=== PATIENT | male | born 1970 | race Caucasian/White ===

== ENCOUNTER 2020-08-16 12:39 | Observation (INO) | payer OTHER ==
[~2020-08-16 12:39] MED LIST: Iopamidol-370 76% 500 ML 1 ML ONE
[2020-08-16 13:33] LABS: Hemoglobin 8.7 g/dL (14.0-18.0); Mean Corpuscular HGB CONC 34.7 g/dL (32.0-36.0); Mean Corpuscular Hemoglobin 35.1 pg (27.0-31.0); RBC Distribution Width 23.8 % (11.5-14.5); Red Blood Cell (RBC) Count 2.49 mill/uL (4.70-6.10); White Blood Cell (WBC) Count 7.3 thou/uL (4.8-10.8)
[2020-08-16 13:53] LABS: Anisocytosis SLIGHT = 6-15 cells (100X) (0-5/hpf); Band 27 % (5-11); Hypochromia SLIGHT = 6-15 cells (100X) (0-5/hpf); Lymphocytes 15 % (21-51); MDiff Complete? YES; Macrocytosis SLIGHT = 6-15 cells (100X) (0-5/hpf); Mean Platelet Volume 6.8 fL (7.4-10.4); Monocytes 18 % (0-10); Neutrophil 17 % (42-75); Platelet Count 41 thou/uL (130-400); Platelet Morphology Comment Appears Decreased; Polychromasia MODERATE = 3-4 cells (100X) (0-2/hpf); Reactive Lymphocytes 23 % (0-10); Schistocytes SLIGHT = 2-5 cells (100X) (0-1/hpf); Target Cells SLIGHT = 2-5 cells (100X) (0-1/hpf); Tear Drops SLIGHT = 2-5 cells (100X) (0-1/hpf)
[2020-08-16 14:02] LABS: ALT (SGPT) 14 U/L (8-55); AST (SGOT) 17 U/L (5-34); Albumin 3.7 g/dL (3.5-5.0); Alkaline Phosphatase 68 U/L (40-110); Anion Gap 13 mmol/L (10-20); BUN (Urea Nitrogen) 14 mg/dL (8.4-25.7); Bilirubin, Total 1.8 mg/dL (0.2-1.2); CK (CPK) 39 U/L (30-200); Calc. Creatinine Clearance 0 mL/min (70-130); Calcium 8.8 mg/dL (7.8-10.44); Carbon Dioxide 30 mmol/L (22-29); Chloride 96 mmol/L (98-107); Estimated GFR-MDRD 64; Globulin 3.3 g/dL (2.4-3.5); Glucose 136 mg/dL (70-105); Lipase 16 U/L (8-78); Potassium 3.9 mmol/L (3.5-5.1); Sodium 135 mmol/L (136-145)
--- NOTE | 2020-08-16 14:28 | RAD ---
XR Chest 1 View Portable History: Chest pain Comparison: None. Findings: Subtle nodule projects over the right upper lobe. Mild fullness of the right peritracheal s oft tissues. No acute osseous abnormality. No pneumothorax or effusion. Mild bronchial wall thickening both lower lobes as well as lingula. Impression: 1. Subtle nodule right upper lobe measuring up to 7 mm along with mild right paratracheal fullness sh ould be interrogated with a chest CT exam. 2. Mildly thickened bronchial delgado in both lower lobes can be seen with bronchitis.
--- NOTE | 2020-08-16 20:52 | CT ---
CT ANGIOGRAM CHEST WITH CONTRAST: History: Substernal chest pain Comparison: Chest radiograph, 08-16-2020 FINDINGS: CT angiogram chest performed after the intravenous administration of contrast. 3D rendering provided. No proximal or segmental pulmonary arterial defect. No significant pericardial effusion. There is extension of the azygos vein. Relatively minimal increase in subcarinal lymph node size to the comparison examination measuring 14 mm in short axis, previously 12 mm in 2014. A pretracheal lymph node (Axial image 44) is enlarged rel ative to the prior examination with a short axis measurement of 1 cm. Right peritracheal lymph node ( Axial image 36) is also enlarged from the comparison examination measuring 13 mm in short axis, previ ously 4 mm. Lower paraesopahgeal lymph node not well seen on prior examination (Coronal image 77) now measures 12 mm in short axis. The spleen is enlarged measuring over 15 cm in length. Mosaic attenuation of the lungs chronic small airway disease. Mild bronchial wall thickening, both lo wer lobes. Small bilateral pleural effusions. Sternum and manubrium are intact. Thoracic spine is int act. No suspicious osteolytic or osteoblastic lesions. IMPRESSION: 1. Small bilateral pleural effusions and findings of bronchitis. 2. No pulmonary embolism. 3. Enlarged since 2014 mediastinal lymph nodes as described. PET CT recommended to evaluate for underlying metabolic activity as there is concern for underlying lymphoprolific disorder or metastati c disease from patient's known cancer. 4. Splenomegaly with a craniocaudal length of the spleen measuring 15 cm. This is new from the [address] exam. 5. Peripheral opacity in the anterior aspect right upper lobe measuring up to 7 mm, likely corre sponds to recent radiographic finding and may reflect an area of alveolitis and less likely a pulmona ry nodule. This could be evaluated on the follow up PET CT. POS: HOME
[2020-08-16 20:53] LABS: Troponin I Less than 0.010 ng/mL (< 0.028)
--- NOTE | 2020-08-16 21:25 | HP ---
REASON FOR ADMISSION: Chest pain. HISTORY OF PRESENT ILLNESS: This is a 50-year-old male patient, who is presenting with chest pain. History going back to five days before his presentation. He has been experiencing chest pain described as tightness like in nature. Sometimes he feels his heart racing. The chest pain is worse with activity, it off and on when it occurs. The duration of the episode is 1 hour. Recently, he has been always short of breath. When he works outside, he gets very short of breath, he has to sit down, feels fatigued. His noticed some pulsation in his chest and abdomen in the morning, sometimes he has been feeling palpitations. The patient is in the ER, was found to be anemic. He does follow with . He has history of testicular cancer. He underwent chemotherapy a couple years ago. He denies any black stools. Denies any hematemesis. Testicular cancer status post orchiectomy and chemotherapy. SOCIAL HISTORY: He drinks occasionally. ALLERGIES: HE DOES NOT HAVE ANY DRUG ALLERGIES. REVIEW OF SYSTEMS: All systems reviewed except the above mentioned, found to be negative. PHYSICAL EXAMINATION: GENERAL: He is awake, alert, oriented, does not appear in distress. VITAL SIGNS: His blood pressure is 129/74, pulse of 94, saturating 99% on room air. HEENT: Head is nontraumatic, normocephalic. Pupils equal, reactive. Extraocular movements are intact. Nonicteric sclerae. Well injected conjunctivae. Oral mucosa normal. Nasal mucosa normal. NECK: Supple. No adenopathy. No murmur. Thyroid is not palpable. Trachea is midline. No supraclavicular adenopathy. HEART: S1, S2 regular. No murmur. No gallop. No friction rubs. No displacement of PMI. LUNGS: Clear to auscultation bilaterally. No wheezes, rhonchi, no crackles. ABDOMEN: Bowel sounds are positive. Nontender abdomen. No hepatosplenomegaly. EXTREMITIES: No lower extremity edema. No cyanosis. NEURO: Cranial nerves II through XII within normal limits. Normal motor function. Normal sensory function and reflexes. LABORATORY DATA: Blood work shows WBC of 7.3; hemoglobin 8.7, the last hemoglobin we have in 2017 was 17.9; MCV of 101.0; platelets of 41,000; neutrophil count 17%; bands of 27%. Sodium 135, potassium 3.9, bicarb of 30, creatinine 1.2, glucose 136. Troponin less than 0.01. EKG shows normal sinus rhythm, negative T-waves in III and aVF. ASSESSMENT AND PLAN: This is a 50-year-old male patient, presenting with chest tightness, but also longer occurrence of fatigue and shortness of breath. He was found to be anemic without obvious explanation. His CT of the chest is still pending, but I did hear the verbal dictation. There was a mention of enlarged spleen. Cardiac: The patient will be admitted to the telemetry. We will continue cycling his cardiac enzymes. We will provide normal blood pressure control. We will do an echocardiogram in the morning. I would like to hold off on scheduling for stress test. Would like Hematology to see him and to advise on the anemia since it could be a contributing factor to his symptomatology. For DVT prophylaxis, he will be on SCDs. Job ID: [id number]
[2020-08-16] MEDS ORDERED: Ondansetron PF 4 MG/2 ML Vial IVP PRN (22:45)
[2020-08-16] MEDS ORDERED: Aspirin Chewable 81 MG TAB PO SCH (22:45)
[2020-08-16] MEDS ORDERED: Ondansetron ODT 4 MG TAB SL PRN (22:45)
[2020-08-16] MEDS ORDERED: Acetaminophen 325 MG TAB PO PRN (22:45)
[2020-08-16 22:51] LABS: Troponin I Less than 0.010 ng/mL (< 0.028)
[2020-08-16 23:50] VITALS: BMI 30.1
[2020-08-17 05:01] LABS: Anion Gap 12 mmol/L (10-20); BUN (Urea Nitrogen) 14 mg/dL (8.4-25.7); Calc. Creatinine Clearance 128 mL/min (70-130); Calcium 8.6 mg/dL (7.8-10.44); Carbon Dioxide 31 mmol/L (22-29); Chloride 98 mmol/L (98-107); Estimated GFR-MDRD 82; Glucose 134 mg/dL (70-105); Potassium 3.5 mmol/L (3.5-5.1); Sodium 137 mmol/L (136-145)
[2020-08-17 05:37] LABS: Anisocytosis SLIGHT = 6-15 cells (100X) (0-5/hpf); Band 23 % (5-11); Hemoglobin 8.2 g/dL (14.0-18.0); Lymphocytes 17 % (21-51); MDiff Complete? YES; Macrocytosis SLIGHT = 6-15 cells (100X) (0-5/hpf); Mean Corpuscular HGB CONC 33.3 g/dL (32.0-36.0); Mean Corpuscular Hemoglobin 34.6 pg (27.0-31.0); Mean Platelet Volume 5.9 fL (7.4-10.4); Metamyelocyte 10 % (0-0); Monocytes 7 % (0-10); Myelocyte 15 % (0-0); Neutrophil 28 % (42-75); Platelet Count 36 thou/uL (130-400); Platelet Morphology Comment Appears Decreased; Red Blood Cell (RBC) Count 2.36 mill/uL (4.70-6.10); Schistocytes SLIGHT = 2-5 cells (100X) (0-1/hpf); Tear Drops SLIGHT = 2-5 cells (100X) (0-1/hpf); White Blood Cell (WBC) Count 5.4 thou/uL (4.8-10.8)
[2020-08-17] MEDS ORDERED: FLU VACC QS2020-21(6MOS UP)/PF 60 MCG/0.5 ML SYRINGE IM ONE (09:00)
[2020-08-17 09:08] LABS: Reticulocyte Count 1.4 % (0.5-1.5)
[2020-08-17 09:28] LABS: Iron 62 ug/dL (65-175); Iron Binding Capacity, Total 259 mcg/dL (261-462)
[2020-08-17 09:52] LABS: Ferritin 720.36 ng/mL (22-322)
[2020-08-17] MEDS ORDERED: HYDROcodone/Acetaminophen 5/325 mg Tablet PO PRN (13:35)
[2020-08-17] MEDS ORDERED: Ondansetron PF 4 MG/2 ML Vial IVP PRN (13:35)
[2020-08-17] MEDS ORDERED: Acetaminophen 325 MG TAB PO PRN (13:35)
[2020-08-17] MEDS ORDERED: Hydrochlorothiazide 25 MG TAB PO SCH (14:00)
[2020-08-17] MEDS ORDERED: Atenolol 50 MG TAB PO SCH (14:00)
[2020-08-17 14:28] LABS: SARS-CoV-2 MS2 Positive; SARS-CoV-2 N Gene Negative; SARS-CoV-2 S Gene Negative; SARS-CoV-2 by NAA Not Detected (NotDetected); SARS-CoV-2 orf1ab Negative
--- NOTE | 2020-08-17 15:37 | PDOC.HOSPP ---
- Subjective Subjective: Pt was seen and examined. further workup of his symptomatic anemia, mild iron def. stool quiaic positive. denies significant of NSAIDs use. no reports of melena, or hematochezia - Objective Vital Signs & Weight: Vital Signs (12 hours) Temp Pulse Resp BP BP Pulse Ox 08/17/20 15:09 97 124/74 08/17/20 12:25 99.0 F 97 16 121/65 99 08/17/20 07:44 99.1 F 88 18 116/76 98 08/17/20 03:47 99.6 F 97 18 127/62 96 Weight Weight 222 lb I&O: 08/16/20 08/17/20 08/18/20 06:59 06:59 06:59 Intake Total 300 Balance 300 Result Diagrams: 08/17/20 03:59 08/17/20 03:59 Radiology Reviewed by me: Yes EKG Reviewed by me: Yes Hospitalist ROS - Medication Medications: Active Medications Generic Name Dose Route Start Last Admin Trade Name Freq PRN Reason Stop Dose Admin Acetaminophen 650 mg 08/17/20 13:35 08/17/20 15:13 Acetaminophen 325 Mg Tab PO 650 mg Q6H PRN Administration Mild-Moderate Pain (1-5) Atenolol 50 mg 08/17/20 14:00 08/17/20 15:09 Atenolol 50 Mg Tab PO 08/17/20 16:00 50 mg NOW DARLENE Administration Hydrochlorothiazide 12.5 mg 08/17/20 14:00 08/17/20 15:10 Hydrochlorothiazide 25 Mg Tab PO 08/17/20 16:00 12.5 mg NOW DARLENE Administration - Exam General Appearance: NAD Eye: PERRL ENT: normocephalic atraumatic Neck: supple Heart: RRR Respiratory: CTAB Gastrointestinal: soft, non-tender Extremities: no cyanosis Skin: normal turgor Neurological: cranial nerve grossly intact Musculoskeletal: normal tone, normal strength Psychiatric: normal affect, normal behavior, A&O x 3 Hosp A/P - Plan The patient stated 50 years old gentleman who has significant past medical history of testicular cancer with status post radiation/chemotherapy in 2013, who presented to ED with complaint of chest discomfort and dyspnea, progressive weight loss. Symptomatic anemia --stool guiaic positive, denies any hx of NSAID use --start PPI BID --GI eval Thrombocytopenia --unclear etiology, pending oncology input --reports his chemo/rad in 2013 Hx testicular cancer --CTA showed neg PE, enlarged mediastinal lymp node --Followed by Dr. Yip, he has been consulted. Chest discomfort - d/t symptomatic anemia --serial enzyme neg x 3; Echo wnl
[2020-08-17] MEDS ORDERED: Folic Acid 1 MG TAB PO SCH (17:00)
--- NOTE | 2020-08-17 21:49 | CON ---
DATE OF CONSULTATION: REASON FOR CONSULT: Testicular cancer, thrombocytopenia, and anemia. HISTORY OF PRESENT ILLNESS: Mr. Leary is a 50-year-old gentleman, who has had history of stage IIIA classic seminoma, status post left orchiectomy and four cycles of BEP chemotherapy. He has had no evidence of disease since that time and is followed by Dr. Dos Santos, last seen in February. He does take hormone replacement with testosterone and in the past has had erythrocytosis from this. He has also had mild thrombocytopenia. He was referred to GI in February, but unfortunately did not go to the appointment. Over the last few months, he states he has lost 10 pounds monthly, but he feels it is due to a job change, diet change, and increase in physical exercise. Over the last two weeks, particularly in the last week, he has had shortness of breath, numbness, and tingling in his arms and fatigue. He presented to the emergency room for evaluation. He had a hemoglobin of 8.7 and a platelet count of 41,000. He had 17% neutrophils, 27% bands, 15% lymphocytes, 23% reactive lymphocytes, and 18% monocytes. His retic count was 1.4. He had iron studies that were normal. His folic acid, however, was low at 3.5. He had a stool occult that was positive for blood. He denies any melena, hematochezia, or epistaxis. He does have heartburn and has been on Zantac for multiple years. Again, he has never had a colonoscopy. His CT angio showed an enlarged spleen measuring 15 cm. There were small bilateral pleural effusions consistent with bronchitis. He had essentially stable mediastinal lymph nodes since 2013. PAST MEDICAL HISTORY: 1. Stage IIIA classic seminoma testicular cancer, status post left orchiectomy. 2. Hypertension. 3. hypogonadism, on testosterone replacement. PAST SURGICAL HISTORY: 1. Mastectomy. 2. Appendectomy. 3. Shoulder surgery. 4. Hand surgery. ALLERGIES: NO KNOWN DRUG ALLERGIES. HOME MEDICATIONS: 1. Aspirin 81 mg daily. 2. Atenolol 50 mg daily. 3. Cialis p.r.n. 4. Hydrochlorothiazide 12.5 mg daily. 5. Zantac daily. 6. Testosterone injection every 6 months. FAMILY HISTORY: No history of testicular cancer. SOCIAL HISTORY: , has 2 children. Lives with his spouse. Former smoker. Drinks daily. No illicit drug use. REVIEW OF SYSTEMS: 12-point review of systems is negative, except for noted in HPI. PHYSICAL EXAMINATION: VITAL SIGNS: Temperature is 99.0, pulse is 97, respiratory rate 16, BP is 124/74, and he is 99% on room air. GENERAL: A well-developed, well-nourished male, in no acute distress. HEENT: Normocephalic and atraumatic. Pupils are equal and reactive to light. NECK: Supple. CVS: Regular rate and rhythm. LUNGS: Clear. ABDOMEN: Obese. Nontender. There is no hepatosplenomegaly palpable. EXTREMITIES: No clubbing or cyanosis. SKIN: No rash. HEMATOLOGICAL: No petechiae or purpura. NEUROLOGICAL: Nonfocal. PERTINENT LABORATORY DATA AND X-RAYS: WBCs are 5.4, hemoglobin 8.2, hematocrit 24.6, platelet count is 36,000. He has 28% neutrophils, 23% bands, 17% lymphocytes, retic count is 1.4. Sodium 137, potassium 3.5, chloride 98, CO2 is 31, BUN is 14, creatinine 0.97, and calcium 8.6. Iron is 62, TIBC is 259, and ferritin is 736. Bilirubin is 1.8, AST is 17, ALT is 14, and alk phos is 68. Creatine kinase is 39 and troponin is negative. Serum total protein is 7, albumin 3.7, globulin 3.3, and lipase 16. B12 is 646. Folic acid is 3.5. COVID PCR negative. ASSESSMENT: 1. Macrocytic anemia. 2. Thrombocytopenia. 3. Folic acid deficiency. 4. Positive stool guaiac. DISCUSSION: Case will be discussed with Dr. Dos Santos. Clearly, the patient has a folic acid deficiency, which could be the cause of his numbness and tingling in his arms, palpitations, and anemia. He also has positive blood in his stools. GI has been consulted for further workup. Patient has a history of fairly significant alcohol use almost on a daily basis. His bilirubin is slightly elevated. He has splenomegaly. This might be due to portal hypertension, which is also causing thrombocytopenia. Again, we will wait for GI opinion. He does not require transfusion right now. He is due to see Dr. Dos Santos later this week where his routine labs for his testicular cancer can be performed. I have started folic acid on him and we will recheck his CBC in the morning. Thank you for the consult. Job ID: [id number] [facility]ITALMarisela
--- NOTE | 2020-08-17 22:33 | CON ---
DATE OF CONSULTATION: 08/17/2020 REQUESTING PHYSICIAN: Emilio Edmondson MD REASON FOR CONSULTATION: Symptomatic anemia and positive FOBT. HISTORY OF PRESENT ILLNESS: Angelo Leary Jr is a very pleasant 50-year-old man. He has a history significant for testicular cancer, status post orchiectomy and chemotherapy and radiation treatments back in 2013. He has some chronic GERD symptoms, for which he takes omeprazole, but no other chronic gastrointestinal symptomatology. He was admitted to the hospital yesterday after presenting with about five days of worsening dyspnea on exertion and chest tightness. There was no associated abdominal pain, nausea, vomiting, diarrhea, constipation, melena, hematochezia, or fever. He has lost about 50 pounds over the past six months, but attributes this to having recently lost his job and changing his eating habits. Upon presentation, he was found to have a macrocytic anemia. Hemoglobin is 8.2 with MCV elevated to 104 and folic acid is low at 3.5. Iron studies were mixed. He had CT angiogram of the chest and this demonstrates some changes suggestive of bronchitis, but no pulmonary embolus. There is also some mediastinal lymphadenopathy as well as splenomegaly. Notably, his platelets are also low at 36. He has never undergone EGD or colonoscopy. Again, he denies any melena or hematochezia, but FOBT was taken and was positive. Hematology/Oncology consultation was also requested and is still pending. REVIEW OF SYSTEMS: Full review of systems including constitutional, head, eyes, ears, nose, throat, GI, , cardiovascular, respiratory, musculoskeletal, and neurologic systems is negative except as noted in the HPI. PAST MEDICAL HISTORY: GERD; hypertension; testicular cancer status post orchiectomy, chemotherapy and radiation in 2013; appendectomy; vasectomy; shoulder surgery; and jaw surgery. SOCIAL HISTORY: Moderate alcohol use. No smoking. FAMILY HISTORY: Positive for myocardial infarction and CVA in multiple family members on the paternal side. There is no known family history of colon cancer. ALLERGIES: NO KNOWN DRUG ALLERGIES. OUTPATIENT MEDICATIONS: 1. Claritin-D. 2. Hydrochlorothiazide. 3. Atenolol. 4. Aspirin 81 mg daily. 5. Omeprazole 20 mg daily. 6. Cialis. 7. Testosterone. PHYSICAL EXAMINATION: VITAL SIGNS: Temperature 99, pulse is 97, blood pressure 124/74, and 99% oxygen saturation on room air. GENERAL: A 50-year-old man, lying in bed comfortably, in no distress. MENTAL: He is alert and fully oriented, in good spirits. Pleasant, conversational. Can give a detailed coherent history. SKIN: He is a bit pale. No jaundice. No rashes were palpable. EYES: No scleral icterus. Extraocular movements intact. ENT: Mucous membranes moist. No oral lesions. LYMPH: No submandibular or supraclavicular lymphadenopathy. THYROID: Nontender to palpation. HEART: Regular rate and rhythm. LUNGS: Clear to auscultation bilaterally. ABDOMEN: Nondistended. Bowel sounds present. Soft and nontender to palpation throughout. No organomegaly appreciated on physical exam. EXTREMITIES: No peripheral edema. VESSELS: Radial pulses 2+ bilaterally. NEUROLOGIC: Cranial nerves 2 through 12 intact bilaterally. No focal deficits. LABORATORY STUDIES: WBC 5.4, hemoglobin 8.2 with MCV 104, platelets low at 36. Sodium 137, potassium 3.5, BUN 14, creatinine 0.97. Total bilirubin 1.8, alkaline phosphatase 68, AST 17, ALT 14, albumin 3.7. COVID PCR negative. Troponin negative. LDH normal at 169. Vitamin B12 of 646. Folic acid level is low at 3.5, lipase only 16, ferritin elevated to 720, iron low at 62, TIBC 259. Overall pattern of iron studies is mixed. IMAGING STUDIES: Chest x-ray shows a 7 mm right upper lobe nodule. CTA of the chest showed bronchitis. No evidence of pulmonary embolus. There is mediastinal lymphadenopathy and splenomegaly. Echocardiogram; this demonstrated normal ejection fraction of 60% to 65% with normal LV size, essentially normal exam. ASSESSMENT AND PLAN: 1. Macrocytic anemia, severe, symptomatic. 2. Folic acid deficiency. 3. Thrombocytopenia. 4. Heme-positive stool. The patient has a folic acid deficiency, which may indeed at least partially explain the macrocytic anemia. The thrombocytopenia is less clear, but note, he has mediastinal lymphadenopathy and splenomegaly in the context of prior history of testicular cancer. 5. Weight loss. 6. Chronic gastroesophageal reflux disease. Iron studies are mixed. He has no overt evidence of gastrointestinal bleeding. That being said, the significant weight loss in the severity of anemia is concerning and GI occult bleeding lesion should be ruled out. The patient has been eating solid food today. While awaiting Oncology evaluation, we will have the patient on a clear liquid diet tomorrow. The tentative plan will be to administer bowel preparation tomorrow evening in anticipation of esophagogastroduodenoscopy and colonoscopy the following day. Depending on platelet count at that time, he may benefit from platelet transfusion prior to the procedure. Thank you for the consultation. Please call anytime with questions or concerns. Job ID: [id number]
[2020-08-18 05:56] LABS: Anisocytosis MODERATE=16-30 cells (100X) (0-5/hpf); Band 23 % (5-11); Eosinophils 1 % (0-10); Hemoglobin 8.7 g/dL (14.0-18.0); Lymphocytes 27 % (21-51); MDiff Complete? YES; Mean Corpuscular Hemoglobin 34.4 pg (27.0-31.0); Mean Platelet Volume 7.7 fL (7.4-10.4); Metamyelocyte 6 % (0-0); Monocytes 5 % (0-10); Myelocyte 9 % (0-0); Neutrophil 17 % (42-75); Platelet Count 39 thou/uL (130-400); Platelet Morphology Comment Appears Decreased; RBC Distribution Width 23.8 % (11.5-14.5); Reactive Lymphocytes 12 % (0-10); Red Blood Cell (RBC) Count 2.53 mill/uL (4.70-6.10); Schistocytes SLIGHT = 2-5 cells (100X) (0-1/hpf); White Blood Cell (WBC) Count 5.7 thou/uL (4.8-10.8)
[2020-08-18] MEDS ORDERED: Hydrochlorothiazide 25 MG TAB PO SCH (09:00)
[2020-08-18] MEDS ORDERED: Aspirin 81 mg Enteric Coated Tablet PO SCH (09:00)
[2020-08-18] MEDS: Folic Acid 1 MG TAB PO SCH (10:02)
[2020-08-18] MEDS: Atenolol 50 MG TAB PO SCH (10:02)
--- NOTE | 2020-08-18 17:26 | PDOC.HOSPP ---
- Subjective Subjective: no acute event overnight. Hb stable - Objective Vital Signs & Weight: Vital Signs (12 hours) Temp Pulse Resp BP Pulse Ox 08/18/20 16:40 97.4 F L 82 16 124/58 L 98 08/18/20 11:54 98 F 86 16 121/65 98 08/18/20 10:02 96 08/18/20 07:45 98.2 F 96 16 117/56 L 96 Weight Weight 218 lb 14.4 oz I&O: 08/17/20 08/18/20 08/19/20 06:59 06:59 06:59 Intake Total 300 720 Output Total 300 Balance 300 420 Result Diagrams: 08/18/20 04:44 08/17/20 03:59 Radiology Reviewed by me: Yes EKG Reviewed by me: Yes Hospitalist ROS - Medication Medications: Active Medications Generic Name Dose Route Start Last Admin Trade Name Freq PRN Reason Stop Dose Admin Acetaminophen 650 mg 08/17/20 13:35 08/17/20 15:13 Acetaminophen 325 Mg Tab PO 650 mg Q6H PRN Administration Mild-Moderate Pain (1-5) Atenolol 50 mg 08/18/20 09:00 08/18/20 10:02 Atenolol 50 Mg Tab PO 50 mg DAILY DARLENE Administration Folic Acid 1 mg 08/18/20 09:00 08/18/20 10:02 Folic Acid 1 Mg Tab PO 1 mg DAILY DARLENE Administration Pantoprazole Sodium 40 mg 08/17/20 21:00 08/18/20 10:02 Pantoprazole 40 Mg Tab PO 40 mg BID DARLENE Administration - Exam General Appearance: NAD Eye: PERRL ENT: normocephalic atraumatic Neck: supple Heart: RRR Respiratory: CTAB Gastrointestinal: soft Extremities: no cyanosis Skin: normal turgor Hosp A/P - Plan The patient stated 50 years old gentleman who has significant past medical history of testicular cancer with status post radiation/chemotherapy in 2013, who presented to ED with complaint of chest discomfort and dyspnea, progr essive weight loss. Symptomatic anemia with folic def --FOBT positive, denies any hx of NSAID use --cont PPI BID --GI eval appreciated - EGD/Colonoscopy tomorrow Thrombocytopenia --stable. follow CBC --appreciate oncology input Hx testicular cancer --CTA showed neg PE, enlarged mediastinal lymp node --Followed by Dr. Yip Chest discomfort - d/t symptomatic anemia --serial enzyme neg x 3; Echo wnl Folic def anemia --pt was started on supplement by oncology
[2020-08-18] MEDS ORDERED: GoLYTELY 4,000 ml Bottle PO SCH (17:30)
--- NOTE | 2020-08-18 18:56 | PRG ---
DATE OF SERVICE: 08/18/2020 SUBJECTIVE: Mr. Leary has had no overt GI bleeding. No nausea or vomiting or diarrhea or constipation. OBJECTIVE: VITAL SIGNS: Temperature 97.4, pulse 82, blood pressure 124/58. GENERAL: He is in no acute distress. Alert and oriented x3. HEENT: Eyes have no scleral icterus. Oropharynx is clear without lesions. No cervical or supraclavicular lymphadenopathy. LUNGS: Clear to auscultation bilaterally. HEART: Regular rate and rhythm without murmur. ABDOMEN: Soft, nontender, and nondistended. Bowel sounds are present. EXTREMITIES: No lower extremity edema. LABORATORY DATA: Iron 62, TIBC 259, ferritin 720, folate 3.5, B12 of 646. White blood cell count 5.7, hemoglobin 8.7, MCV 104, platelets 39,000. IMPRESSION: 1. Macrocytic anemia with folic acid deficiency. 2. Anemia of chronic disease with low iron, low TIBC, and high ferritin. 3. Question of contributing anemia from chronic gastrointestinal blood loss. He has never had a colonoscopy. 4. Abnormal liver function test. He has an isolated hyperbilirubinemia. However, the enlarged spleen with the low platelets could indicate portal hypertension. Upper endoscopy could help evaluate for significant signs of portal hypertension with either varices or portal hypertensive gastropathy. RECOMMENDATIONS: 1. We will follow through with the EGD and colonoscopy tomorrow. 2. He is being followed by Hematology-Oncology as well. Job ID: [id number]
--- NOTE | 2020-08-19 14:14 | OP ---
DATE OF PROCEDURE: 08/19/2020 PROCEDURES PERFORMED: Esophagogastroduodenoscopy with snare polypectomy, colonoscopy (diagnostic). INDICATION FOR PROCEDURE: Symptomatic anemia, suspect GI bleeding source. DESCRIPTION OF PROCEDURE: After the risks and benefits of the procedures were explained to the patient including risks of bleeding, infection, perforation, reactions to anesthesia, aspiration, and/or pain, informed consent was obtained. The patient was then taken to the endoscopy suite, where he was maneuvered into the left lateral decubitus position, followed by introduction of deep sedation via propofol and anesthesia support. Once adequate sedation was achieved, the standard gastroscope was introduced into the mouth with intubation of the esophagus, stomach, and the proximal small intestines with the findings listed below. The patient tolerated the procedure well with no immediate perioperative complications. On conclusion of this portion of the procedure, all equipment was removed from the patient and the bed was rotated 180 degrees in anticipation of the colonoscopy. After a digital rectal examination was performed, the standard colonoscope was introduced into the rectum and advanced to the terminal ileum without difficulty. The quality of the prep was good with adequate visualization achieved. The patient tolerated this portion of the procedure well with no immediate perioperative complications. On conclusion of the procedure, all equipment was removed from the patient and he was transferred to PACU in satisfactory condition. EGD FINDINGS: Esophagus: Normal-appearing mucosa was seen in the proximal, mid, and distal esophagus. There was no evidence of erosions, ulcerations, mass lesions, or active/recent bleeding. Stomach: Multiple erythematous polyps were seen throughout the entire stomach in primarily the fundus and the body measuring between 3 to 15 mm in size. They exhibited significantly increased erythema and one of the larger polyps also exhibited mild oozing of blood with manipulation by the scope. As such, the 2 largest polyps measuring 12 mm and 15 mm were removed completely with snare cautery polypectomy. They were placed in a specimen jar for further evaluation. The remainder of these erythematous polyps were not removed given the increased risk of bleeding with removal and not wanting to provide additional sources of anemia at this time. Otherwise, there was no evidence of erosions, mass lesions, or active/recent bleeding. Duodenum: Normal-appearing mucosa was seen in both the duodenal bulb and second portion of the duodenum. There was no evidence of erosions, ulcerations, mass lesions, or active/recent bleeding. IMPRESSION: 1. Multiple erythematous gastric polyps measuring 3 to 15 mm in diameter, status post snare cautery polypectomy of the largest 2 polyps (measuring 12 to 15 mm in size) with good hemostasis afterwards (likely not the source of the patient's macrocytic anemia). 2. Otherwise, normal upper endoscopy. COLONOSCOPY FINDINGS: Digital rectal exam: Normal findings were seen on external examination. Colon findings: Normal-appearing mucosa was seen within the terminal ileum as well as at the appendiceal orifice and ileocecal valve. Normal-appearing mucosa was then seen within the cecum, ascending colon, transverse colon, descending colon, sigmoid colon, and rectum. Small internal hemorrhoids (nonbleeding) and hypertrophied anal papillae were seen on rectal retroflexion. IMPRESSION: 1. Small nonbleeding internal hemorrhoids. 2. Hypertrophied anal papillae. 3. No etiology for the patient's anemia was seen during this examination. RECOMMENDATIONS: 1. Would continue to trend the patient's H and H and transfuse as necessary to maintain an H and H of 7/21. 2. Continue to monitor clinically for signs of active GI bleeding. 3. We will follow up on the polypectomy results and if deemed adenomatous, would recommend a repeat upper endoscopy within the next 6 to 8 weeks for complete removal of all gastric polyps. 4. Would transfer the patient from famotidine to pantoprazole as an outpatient. Would continue the pantoprazole b.i.d. here until discharge, then decrease to 40 mg daily. 5. Would continue to replace the patient's folate as a possible source of his anemia. Given the macrocytic nature of the patient's anemia and his iron indices more indicative of anemia of chronic disease, we will sign off at this time. I would recommend to follow up in the GI clinic in 3 weeks after discharge for followup on the gastric polyps. Please call with any additional questions. Job ID: [id number]
--- NOTE | 2020-08-19 16:09 | PDOC.DS.DS ---
Provider - Provider Date of Admission: 08/16/20 19:27 Date of Discharge: 08/19/20 Admitting Provider: Chio Dumont MD Consultations: Gastroentrology, Oncology Primary Care Physician: KRISTYN RUBIN JR, MD Course - Hospital Course Hospital Course: DISCHARGE DIAGNOSES: 1. Symptomatic macrocytic anemia with folic acid deficiency 2. Anemia of chronic disease with low iron 3. Stage III AAA seminoma testicular cancer, status post left orchiectomy 4. Hypertension 5. Hypogonadism, on testosterone replacement PERTINENT IMAGING STUDIES: Chest x-ray: Subtle nodule right upper lobe. Mild thickened bronchial wall in both lower lobe can be seen in bronchitis CTA of the chest: Small bilateral pleural effusion and finding of bronchitis. No PE. Enlarged since 2014 mediastinal lymph nodes as described. Pets CT recommended to evaluate for underlying metabolic activities or metastatic disease from patient's known cancer. 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 Further work-up, show patient has macrocytic anemia. At any rate he was admitted to hospitalist service, he was monitored on telemetry. His serial enzymes negative x3. 2D echo was normal. His symptoms likely due to anemia. Further work-up showed that he had mild iron deficiency anemia as well as folic acid deficiency. His stool guaiac was positive. For that reason GI was consulted. Patient underwent EGD and colonoscopy, found some polyp and internal hemorrhoids. Otherwise, no evidence of active bleeding. Status post biopsy. Oncology was also consulted as well. He is supposed to see Dr. Yip on 08/19, however I have discussed with Ms. Regina NP for Dr. Gal Garcia, she had rescheduled that for next week. His hemoglobin went up to 8.7 at the time of discharge. Patient was started on iron supplement as well as folic acid. Scription for protonic was sent to his pharmacy. Patient was advised to follow-up with his oncology for ongoing management of his testicular cancer. He will also follow-up with GI in 3 weeks. PROCEDURE PERFORMED: EGD and colonoscopy: Multiple erythematous polyps measuring up to 3 to 15 mm. Small nonbleeding internal hemorrhoids status post biopsy 2D echo, so EF 60-65%. Otherwise normal LV function DISCHARGE CONDITION: STABLE DISPOSITION: HOME PHYSICAL EXAM: General Appearance: Alert, oriented, resting comfortably, no apparent distress, well developed/nourished. HEENT: Normocephalic/atraumatic, moist mucous membrane, normal ENT inspection, normal tones. PERRLA, no scleral icterus, normal conjunctiva Neck: Supple, normal inspection, no JVD Respiratory: Lungs are clear bilaterally, normal breath sounds, no accessory muscle use Cardiovascular: Regular rate, regular rhythm, no murmur, no rubs Abdomen: Soft, nontender, nondistended, normal bowel sounds, no organomegaly, no guarding no rebound Back: Normal inspection, no CVA tenderness Extremities: No clubbing, no cyanosis, no edema Psych/Mental Status: Normal affect, speech, non-pressured, AAO x 3 Neurologic: CN II-XII are intact. Skin: Warm/Dry, Normal Color, no rashes DISCHARGE TIME SPENT: >30 MINUTES Resuscitation Status: 08/16/20 20:33 Resuscitation Status Routine Resuscitation Status: FULL: Full Resuscitation - Labs Lab Results: 08/18/20 04:44 08/17/20 03:59 Abnormal Lab Results - Last 48 hrs 08/18/20 04:44: RBC 2.53 L, Hgb 8.7 L, Hct 26.3 L, MCV 104.0 H, MCH 34.4 H, RDW 23.8 H, Plt Count 39 L, Neutrophils % (Manual) 17 L, Band Neuts % (Manual) 23 H, Reactive Lymphs % 12 H, Metamyelocytes % (Man) 6 H, Myelocytes % 9 H, Plt Morphology Comment Appears Decreased L, Anisocytosis MODERATE=16-30 cells H Microbiology - Entire Visit 08/17/20 13:47 Stool Stool Occult Blood (TERI) - Final - Physical Exam Vitals: Vital Signs (12 hours) Temp Pulse Resp BP Pulse Ox 08/19/20 07:34 97.5 F L 87 16 121/58 L 97 Weight Weight 221 lb 11.2 oz Physical Exam: The patient was seen and examined on the day of discharge. Plan - Discharge Medications Prescriptions: Docusate [Colace] 100 mg PO DAILY #30 cap Ferrous Gluconate 324 mg PO DAILY #90 tablet Folic Acid [Folvite] 1 mg PO DAILY #90 tab Pantoprazole [Protonix] 40 mg PO DAILY #90 tab Home Medications: Medication Instructions Recorded Confirmed Type Aspirin [Aspirin EC] 81 mg PO DAILY 02/09/14 08/17/20 History Atenolol 50 mg PO DAILY 02/09/14 08/17/20 History Hydrochlorothiazide 1 tab PO DAILY 02/09/14 08/17/20 History Ipamorelin 12 units SC DAILY 02/09/14 08/17/20 History Loratadine/Pseudoephedrine 1 tab PO DAILY 02/09/14 08/17/20 History [Claritin-D 24 Hour] Omeprazole [Prilosec] 1 tab PO DAILY 02/09/14 08/17/20 History Tadalafil [Cialis] 20 mg PO ASDIR 02/09/14 08/17/20 History Testosterone [Testopel] 450 mg SC Q180D 02/09/14 08/16/20 History Docusate [Colace] 100 mg PO DAILY #30 cap 08/19/20 Rx Ferrous Gluconate 324 mg PO DAILY #90 tablet 08/19/20 Rx Folic Acid [Folvite] 1 mg PO DAILY #90 tab 08/19/20 Rx Pantoprazole [Protonix] 40 mg PO DAILY #90 tab 08/19/20 Rx Allergies: No Known Allergies Allergy (Verified 04/25/14 13:00) - Discharge Instructions Discharge Instructions:: Follow up with your oncologist next week, reheck CBC to make sure that your hemoglobin remained stable New prescription sent to your pharmacy Follow-up with GI, Dr. Jc in 3 weeks Nourishment:: Heart Healthy Diet - Follow up Plan Referrals: Kristyn Rubin Jr, MD [Primary Care Provider] - Disposition: HOME Quality - Care Measures CORE MEASURES:: N/A
[2020-08-19] MEDS: Folic Acid 1 MG TAB PO SCH (16:13)
[2020-08-19] MEDS: Atenolol 50 MG TAB PO SCH (16:14)
[2020-08-19 16:53] VITALS: BP 122/85; TEMP 98.2
== END 2020-08-19 16:55 | disposition home or self-care (01) ==
LOC: ERS 12:39 → ERHOLD 19:27 → 2NO 22:01
PROVIDERS: ADMIT Internal Medicine; ATTEND Family Medicine
PROC: 0DJD8ZZ Inspection of Lower Intestinal Tract, Via Natural or Artificial Opening Endoscopic (ICD-10-PCS; principal; 2020-08-19)
PROC: 0DB68ZX Excision of Stomach, Via Natural or Artificial Opening Endoscopic, Diagnostic (ICD-10-PCS; 2020-08-19)
DX: D52.9 Folate deficiency anemia, unspecified (principal); D50.9 Iron deficiency anemia, unspecified; D63.8 Anemia in other chronic diseases classified elsewhere; K31.7 Polyp of stomach and duodenum; K64.8 Other hemorrhoids; K64.4 Residual hemorrhoidal skin tags; I10 Essential (primary) hypertension; E89.5 Postprocedural testicular hypofunction; D69.6 Thrombocytopenia, unspecified; K21.9 Gastro-esophageal reflux disease without esophagitis; E80.6 Other disorders of bilirubin metabolism; Z85.47 Personal history of malignant neoplasm of testis; Z87.891 Personal history of nicotine dependence; Z79.899 Other long term (current) drug therapy; Z79.82 Long term (current) use of aspirin
CPT/HCPCS: 36415; 71045; 71275; 80048; 80053; 82274; 82550; 82607; 82728; 82746; 83540; 83550; 83615; 83690; 84484; 85025; 85046; 86850; 86900; 86901; 87635; 88305; 88312; 90471; 90662; 93005; 93306; G0008; G0378; Q9967; U0003

== ENCOUNTER 2020-08-30 16:58 | Observation (INO) | payer OTHER ==
[2020-08-30] MEDS ORDERED: Ondansetron ODT 4 MG TAB PO PRN (20:53)
[2020-08-30] MEDS ORDERED: Ondansetron PF 4 MG/2 ML Vial IVP PRN (20:53)
[2020-08-30] MEDS ORDERED: Senokot S 8.6-50 MG TAB PO PRN (20:53)
[2020-08-30] MEDS ORDERED: Calcium Carbonate 500 MG ChewTAB PO PRN (20:53)
[2020-08-30] MEDS ORDERED: Sodium Chloride 0.9% 1,000 ML IV SCH (21:00)
[2020-08-30] MEDS: Sodium Chloride 0.9% 1,000 ML IV SCH (21:16)
--- NOTE | 2020-08-30 21:46 | PDOC.HHP ---
Hospitalist HPI - History of Present Illness Abnormal labs History of Present Illness: PCP: Dr. Israel Berg The patient is a 50-year-old male with a past medical history significant for stage III AAA seminoma testicular cancer status post left orchiectomy with chemotherapy and radiation (2013), anemia of chronic disease, HTN that presents to the hospital as a direct admit from Dr. Dos Santos for the above complaint. He was scheduled to undergo bone marrow biopsy tomorrow, however, his preop labs were abnormal, so he was sent to emergency department for further evaluation. The patient was recently discharged from our hospital on 08/19/2020 with a chief complaint of chest pain and shortness of breath. The patient underwent extensive cardiac work-up with a normal echo and normal troponins. He was found to have macrocytic anemia and guaiac positive stool. Gastroenterology performed an EGD and a colonoscopy which found polyps and internal hemorrhoids. CT abdomen showed splenomegaly and recommended a follow-up PET scanning. The patient reports that since discharge, he has had intermittent, nocturnal fevers and chills. He reports fever last night, T-max 102 Fahrenheit. He reports that he has had fevers approximately every other night for the past 7-10 days. He says that he usually sleeps with the thermostat set at 64 degrees at home, but he has been febrile with chills, asking for blankets with the thermostat set at 74 degrees this past week. This is abnormal for him. He reports associated loose bowel movements. He denies any hematochezia/melena, recent travel or ingestion of uncooked foods. He has not been on any recent antibiotic therapy. He denies any dysuria or hematuria. He denies any known sick contacts. He denies any shortness of breath, wheezing or hemoptysis. He denies any chest pain, heart palpitations or lightheadedness. He denies any headache or neck stiffness. He has no other complaints at this time. ED Course: Direct admit. Hospitalist ROS - Review of Systems All other systems reviewed; all pertinent +/- noted in HPI/Subj - Medication Medications: Active Medications Generic Name Dose Route Start Last Admin Trade Name Freq PRN Reason Stop Dose Admin Sodium Chloride 1,000 mls @ 50 mls/hr 08/30/20 19:30 08/30/20 21:16 Normal Saline 0.9% IV 1,000 mls .Q20H DARLENE Administration 1. Atenolol 50 mg p.o. daily 2. Colace 100 mg p.o. daily 3. Folic acid 1 mg p.o. daily 4. Protonix 40 mg p.o. daily Allergies: No known drug allergies Hospitalist History - Past Medical History Source: patient, RN notes reviewed Cardiac: reports: HTN PARTS WASHER: reports: Peripheral neuropathy (Status post chemotherapy treatment (2013)) Gastrointestinal: reports: GERD Heme/Onc: reports: Other (Anemia of chronic disease, stage III AAA seminoma testicular cancer) - Past Surgical History Past Surgical History: reports: Other (Left orchiectomy) - Family History Family History: reports: cancer (Grandmother), cardiac disorder, cerebrovascular accident - Social History Smoking Status: Never smoker Alcohol: reports: None Drugs: reports: none Living Situation: With Family Occupation: Retired Activity level: independent ambulation - Exam General Appearance: NAD, awake alert. negative: ill appearing Eye: PERRL, anicteric sclera ENT: normocephalic atraumatic, moist mucosa Neck: supple, symmetric Heart: no gallops, no rubs, normal peripheral pulses, III/IV Respiratory: CTAB, no wheezes, no rales, no ronchi, normal chest expansion, no tachypnea Gastrointestinal: soft, non-tender, normal bowel sounds, no guarding, no rigid ity Gastrointestinal - other findings: Negative Rovsing sign, negative Martinez sign Extremities: no cyanosis, no edema Skin: no rashes Neurological: cranial nerve grossly intact, no focal deficits Musculoskeletal: normal tone, normal strength Psychiatric: normal affect, A&O x 3 Hospitalist Results - Labs Result Diagrams: 08/30/20 21:36 08/30/20 21:34 Hospitalist H&P A/P - Problem (1) Fever, unknown origin Status: Acute (2) Pancytopenia Code(s): D61.818 - OTHER PANCYTOPENIA Status: Acute (3) Cancer of testis, seminoma Code(s): C62.90 - MALIG NEOPLASM OF UNSP TESTIS, UNSP DESCENDED OR UNDESCENDED Status: Chronic (4) Anemia of chronic disease Code(s): D63.8 - ANEMIA IN OTHER CHRONIC DISEASES CLASSIFIED ELSEWHERE Status: Chronic (5) GERD (gastroesophageal reflux disease) Code(s): K21.9 - GASTRO-ESOPHAGEAL REFLUX DISEASE WITHOUT ESOPHAGITIS Status: Chronic - Plan Plan: Direct admit from Oncology, Dr. Dos Santos for abnormal preop labs for scheduled bone marrow biopsy tomorrow. #fever, unknown origin Reports intermittent fevers at night CT abd and CXR pending Check blood/urine CX, LA, procalcitonin, ESR/CRP Check CMP, CBC Consults ID to rule out chronic infectious etiology #Pancytopenia Presented WBC 6.4, Hgb 8, HCT 23.8, platelets 37 Oncology recs, transfuse 2 units PRBCs Repeat iron studies, reticulocyte count. Check haptoglobin, LDH, bilirubin. #Cancer of testis, seminoma History stage III AAA seminoma testicular cancer Status post left orchiectomy with chemo/radiation (2013) #Anemia of chronic disease Presented Hgb 8.0 Was Hgb 8.7 on (08/18/2020) Check iron studies Restart home medication folic acid. #GERD Restart home dose Protonix SCDs for DVT prophylaxis. No pharmacological DVT prophylaxis. Protonix for GI prophylaxis. Full code. Discussed the case with Dr. Marrero.
[2020-08-30 21:58] LABS: Hemoglobin 6.8 g/dL (14.0-18.0); Mean Corpuscular Hemoglobin 32.1 pg (27.0-31.0); Mean Corpuscular Volume 97.4 fL (78.0-98.0); Mean Platelet Volume 7.4 fL (7.4-10.4); Platelet Count 39 thou/uL (130-400); RBC Distribution Width 27.9 % (11.5-14.5); Red Blood Cell (RBC) Count 2.11 mill/uL (4.70-6.10); White Blood Cell (WBC) Count 5.9 thou/uL (4.8-10.8)
[2020-08-30 21:58] LABS: Reticulocyte Count 1.5 % (0.5-1.5)
[2020-08-30 22:05] LABS: Lactic Acid 1.4 mmol/L (0.5-2.2)
[2020-08-30 22:06] LABS: INR-International Normal Ratio 1.1; PTT 32.5 sec (22.9-36.1); Prothrombin Time 14.1 sec (12.0-14.7)
[2020-08-30 22:08] VITALS: BMI 29.6
[2020-08-30 22:08] LABS: Bilirubin, Direct 0.3 mg/dL (0.1-0.3); Bilirubin, Total 0.6 mg/dL (0.2-1.2)
[2020-08-30 22:09] LABS: ALT (SGPT) 12 U/L (8-55); AST (SGOT) 14 U/L (5-34); Albumin 3.6 g/dL (3.5-5.0); Alkaline Phosphatase 65 U/L (40-110); Anion Gap 13 mmol/L (10-20); BUN (Urea Nitrogen) 15 mg/dL (8.4-25.7); Bilirubin, Total 0.6 mg/dL (0.2-1.2); CRP (Inflammatory) 2.46 mg/dL (= or < 0.5); Calc. Creatinine Clearance 117 mL/min (70-130); Calcium 8.8 mg/dL (7.8-10.44); Carbon Dioxide 27 mmol/L (22-29); Chloride 100 mmol/L (98-107); Estimated GFR-MDRD 74; Globulin 3.4 g/dL (2.4-3.5); Glucose 119 mg/dL (70-105); Iron 88 ug/dL (65-175); Iron Binding Capacity, Total 286 mcg/dL (261-462); Lipase 23 U/L (8-78); Potassium 3.7 mmol/L (3.5-5.1); Sodium 136 mmol/L (136-145)
--- NOTE | 2020-08-30 22:11 | RAD ---
Portable frontal chest radiograph: 08/30/2020 COMPARISON: 08/16/2020 HISTORY: Shortness of breath FINDINGS: Lungs are clear. Heart and mediastinal contours appear within normal limits. IMPRESSION: No acute findings.
--- NOTE | 2020-08-30 22:18 | CT ---
CT of abdomen and pelvis: 08/30/2020 COMPARISON: 02/11/2014 HISTORY: Anemia, thrombocytopenia TECHNIQUE: Axial CT imaging at 5 mm intervals from lung bases through pubic symphysis with intravenou s and oral contrast. Coronal and sagittal reformatted imaging obtained. FINDINGS: The visualized lung bases appear unremarkable. There is debris within the stomach. There is no free intraperitoneal air. The liver, gallbladder, and spleen demonstrate no acute findings. The spleen is enlarged, measuring 1 5.4 cm in craniocaudal dimension, enlarged when compared to the prior study at which time it measured 12.1 cm in craniocaudal dimension. The pancreas, adrenal glands, and kidneys demonstrate no acute findings. The urinary bladder is decompressed. No evidence for bowel obstruction. No focal area of bowel inflammatory change is evident. No enlarged retroperitoneal lymph nodes are seen. No enlarged pelvic lymph nodes are noted. There is nonspecific ill-defined stranding of the mesenteric fat centrally within the inferior abdome n, most prominent within the right lower quadrant, with areas of ill-defined area mesenteric nodularity and multiple mildly enlarged mesenteric nodes within the right lower quadrant. The duodenu m appears mildly thick-walled in the region of the horizontal segment. No evidence for abscess. Osseous structures of the abdomen/pelvis demonstrate no worrisome lytic or blastic bone lesion. No ac robin osseous abnormality is seen. IMPRESSION: Nonspecific edematous change within the mesenteric fat, primarily within the right lower quadrant with associated mildly enlarged mesenteric lymph nodes. There is questionable wall thickening of the duodenum. There is nonspecific splenomegaly. The mesenteric edematous change may be associated with enteritis/duodenitis. Malignancy in the proper clinical setting cannot be excluded. Short-term follow-up imaging following treatment is advised These findings are new when compared to the 02/11/2014 CT. CODE T
[2020-08-30 22:34] LABS: Bacteria/HPF None Seen HPF (None Seen); Bilirubin Negative (Negative); Blood, Urine Negative (Negative); Clarity Clear (Clear); Glucose, Urine (Dipstick) Normal (Negative); Ketone, Urine Negative (Negative); Leukocyte Negative Leu/uL (Negative); Nitrite Negative (Negative); Protein, Urine (Dipstick) 10 mg/dL (Neg-Trace); RBC/HPF 0-3 HPF (0-3); Specific Gravity, Urine 1.027 (1.002-1.036); Squamous Epithelial None Seen HPF (0-3); WBC/HPF 0-3 HPF (0-3); pH, Urine 5.5 (5.0-9.0)
[2020-08-30 22:36] LABS: Urine Culture Reflex No No
[2020-08-30 22:54] LABS: Ferritin 786.47 ng/mL (22-322); Thyroid Stimulating Hormone 1.7668 uIU/mL (0.35-4.94)
[2020-08-30 23:12] LABS: Anisocytosis MODERATE=16-30 cells (100X) (0-5/hpf); Band 24 % (5-11); Hypochromia SLIGHT = 6-15 cells (100X) (0-5/hpf); Lymphocytes 46 % (21-51); MDiff Complete? YES; Monocytes 12 % (0-10); Neutrophil 18 % (42-75); Platelet Morphology Comment Appears Decreased; Schistocytes SLIGHT = 2-5 cells (100X) (0-1/hpf)
[2020-08-31 07:26] LABS: Hemoglobin 9.8 g/dL (14.0-18.0)
[2020-08-31] MEDS: Folic Acid 1 MG TAB PO SCH (09:10)
[2020-08-31] MEDS: Atenolol 50 MG TAB PO SCH (09:10)
[2020-08-31] MEDS: Docusate 100 MG CAP PO SCH (09:10)
[2020-08-31] MEDS ORDERED: Midazolam HCl 2 mg/2 ml Vial ONE (10:52)
[2020-08-31] MEDS ORDERED: Sodium Bicarbonate 2.5 MEQ/5 ML VIAL ONE (10:52)
[2020-08-31] MEDS ORDERED: Fentanyl 100 MCG/2 ML VIAL ONE (10:53)
--- NOTE | 2020-08-31 12:09 | CT ---
CT-guided bone marrow aspiration/biopsy Conscious sedation: At least 30 minutes spent with the patient for conscious sedation. FINDINGS: After explaining the procedure and answering all questions, limited CT imaging of the pelvi s was performed with patient prone. Sterile technique, buffered local anesthesia, CT guidance, and a left posterior approach were used to carefully advance an 11-gauge bone biopsy needle to the posterior cortex of the left iliac body. Position confirmed with CT. Biopsy needle carefully engaged through the cortex. Blood aspirate obtain ed and submitted to pathology for processing. 11-gauge core specimen obtained and submitted to pathology. No evidence of complication. Patient tolerated the procedure well and was returned in unchanged condi tion. IMPRESSION : Technically successful CT-guided bone marrow aspiration/biopsy. Pathology is pending.
[2020-08-31 12:40] LABS: Hemoglobin 9.5 g/dL (14.0-18.0)
[2020-08-31] MEDS: Sodium Chloride 0.9% 1,000 ML IV SCH (15:30)
--- NOTE | 2020-08-31 15:56 | CON ---
DATE OF CONSULTATION: 08/31/2020 REASON FOR CONSULTATION: Fever and cytopenias. HISTORY OF PRESENT ILLNESS: A 50-year-old who was diagnosed with stage III seminoma in 2013. He was treated by Dr. Dos Santos with chemotherapy and he had orchiectomy on left side. He completed chemotherapy and he had revision of his treatment at [facility] subsequently, and they told him that they were surprised that he survived this treatments and that he did not feel that he would ever come back and released him. Since then, he has been following Dr. Dos Santos every 6 months with lab work and apparently in remission without major problems. He lives in a [place] near [place] with his with cattle. 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 In early December, he had a respiratory illness, which could have been COVID-19, but never tested for it at that time. He recovered from that and then he did well until late July or early August when he developed fatigue, dyspnea, general malaise, fever, and he was admitted on 08/16 with diagnosis of symptomatic microcystic anemia, folic acid deficiency. Workup included a CTA of chest, which showed bilateral pleural effusions, bronchitis, and mediastinal lymph nodes enlarged. PET scan was recommended. There was evidence of splenomegaly as well. He had a colonoscopy, which showed a polyp, that was to evaluate positive guaiac in stool. At the time of discharge, hemoglobin was 8.7. He was given folic acid and iron supplementation and Protonix. The polyp biopsies demonstrated hyperplastic polyp. No H pylori or malignancy noted. The testicular pathology from the showed seminoma classic type. Subsequently, the patient persisted with symptoms of weakness, and by the way, he had a cardiac workup, which was negative during this recent admission. So, since discharge, he has had intermittent fever, chills, and drenching sweats, usually nighttime only, up to 102 Fahrenheit temperature. He denies any headaches. No back pain. Some cough, but mostly probably from rhinitis. No sore throat, dental pain, or chest pain. No abdominal pain. No genitourinary symptoms. No joint symptoms or neurological symptoms. MEDICAL HISTORY: 1. Seminoma, stage III, treated with chemotherapy in 2013, in remission since. 2. Respiratory illness in December of this year, probably COVID-19. 3. History of rhinitis. 4. 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 5. Hypertension. 6. GERD. SURGICAL HISTORY: Orchiectomy. FAMILY HISTORY: CVA and coronary artery disease. SOCIAL HISTORY: Rancher, . He used to work for [employer]. Last trip to the [facility] 18 months ago. Never smoker. He drinks daily or sometimes without dinner. ALLERGIES: NONE. MEDICATIONS: At the time right now he is on: 1. Tums. 2. Colace. 3. Folvite. 4. Zofran. 5. Protonix. 6. Electrolytes. 7. Senokot. PHYSICAL EXAMINATION: VITAL SIGNS: He has been afebrile since he was admitted and he was 99.8 at the beginning, O2 sats 99 on room air, blood pressure normal. SKIN: Normal. Peripheral IV access. No lymphadenopathy. HEENT: Normal. NECK: Supple. LUNGS: Symmetric, clear breath sounds. HEART: S1 and S2. Regular rate. ABDOMEN: Soft, not distended or tender. No ascites. No bladder distention. Dullness in the left upper quadrant on percussion. GENITOURINARY: No genital abnormalities except for absence of left testicle. EXTREMITIES: No joint inflammatory activity. No edema. Pulses 1+ in dorsalis pedis. NEUROLOGIC: Nonfocal. LABORATORY DATA: White cell count is 5.9, his hemoglobin was 6.8 and went up to 9.5, platelets 39,000, 24% bands, 18% neutrophils, 12% monocytes. INR 1.1. Chemistry is essentially normal except for a CRP 2.46, albumin 3.6, and globulin 3.4. Procalcitonin 0.26. Ferritin 786. LDH 230. The urinalysis was essentially normal. The bone marrow is pending. The chest x-ray from 08/30 with no acute findings. The abdomen and pelvis from 08/30 with edematous change, mesenteric fat within the right lower quadrant, mildly enlarged mesenteric lymph nodes, splenomegaly. ASSESSMENT: 1. Seminoma, treated and in remission until now. 2. Likely COVID-19 infection at the beginning of December, which appears to have resolved. 3. Newly identified anemia and thrombocytopenia. Changes in the white cells are indicative of a fresh new white cells being produced, so it may have consumption of white cells as well or change in the dynamics of white cell production in addition to red and platelets, so seems to be a pancytopenia or similar sort of event. 4. Fever. 5. Changes on the imaging studies noted above, mostly lymphadenopathy and some mesenteric changes. DISCUSSION: Differential diagnosis includes malignancy, either a germ cell malignancy or a lymphoma versus an infection; for example, endocarditis, brucellosis, disseminated fungal, and mycobacterial infections, Coxiella burnetii infection, Bartonella henselae infection, and so on, autoimmune syndromes, vasculitis less likely, primary bone marrow illnesses, leukemia, myelodysplastic syndrome, aplastic anemia, etc., probably not likely, but not ruled out. Right now, he is not on antimicrobial therapy as he has defervesced. We will have to submit assays for the infectious component of his FUO workup, may need to submit a Karius study depending on clinical progress and results of bone marrow test. I think a PET scan was recommended as well. P.S.: His alphafetoprotein and beta HCG were wnl so a recurrence of a germ cell tumor is less likely. Job ID: [id number]
--- NOTE | 2020-08-31 16:03 | PDOC.HOSPP ---
- Subjective Encounter Date: 08/31/20 Encounter Time: 16:02 Subjective: I saw and evaluated this 50yr old who was admitted to the hospital for fever of unknown origin. He carries a diagnosis of testicular cancer s/p orchiectomy and chemotherapy. He was sent in by his oncologist due to some abnormal labs. He was anemic. He has since been transfused and is otherwise feeling well. He described intermittent fevers mostly nocturnal. Cultures are collected and ID has seen him. He has defervesced by the time i saw him. - Objective Vital Signs & Weight: Vital Signs (12 hours) Temp Pulse Pulse Resp BP BP BP 08/31/20 11:45 98.7 F 79 20 130/75 08/31/20 09:10 86 125/72 08/31/20 08:00 98.9 F 86 18 125/72 08/31/20 07:27 98.9 F 86 18 125/72 08/31/20 04:19 98.8 F 85 14 123/73 Pulse Ox 08/31/20 11:45 99 08/31/20 09:10 08/31/20 08:00 97 08/31/20 07:27 97 08/31/20 04:19 97 Weight Admit Weight 218 lb 11.2 oz Weight 218 lb 11.2 oz I&O: 08/30/20 08/31/20 09/01/20 06:59 06:59 06:59 Intake Total 1080 250 Balance 1080 250 Result Diagrams: 08/31/20 12:19 08/30/20 21:34 Radiology Reviewed by me: Yes EKG Reviewed by me: Yes Hospitalist ROS - Review of Systems ROS unobtainable: due to mental status Constitutional: reports: chills, sweats, weakness Gastrointestinal: reports: nausea - Medication Medications: Active Medications Generic Name Dose Route Start Last Admin Trade Name Freq PRN Reason Stop Dose Admin Atenolol 50 mg 08/31/20 09:00 08/31/20 09:10 Atenolol 50 Mg Tab PO 50 mg DAILY DARLENE Administration Docusate Sodium 100 mg 08/31/20 09:00 08/31/20 09:10 Docusate 100 Mg Cap PO 100 mg DAILY DARLENE Administration Folic Acid 1 mg 08/31/20 09:00 08/31/20 09:10 Folic Acid 1 Mg Tab PO 1 mg DAILY DARLENE Administration Sodium Chloride 1,000 mls @ 50 mls/hr 08/30/20 19:30 08/30/20 21:16 Normal Saline 0.9% IV 1,000 mls .Q20H DARLENE Administration Pantoprazole Sodium 40 mg 08/31/20 09:00 08/31/20 09:10 Pantoprazole 40 Mg Tab PO 40 mg DAILY DARLENE Administration - Exam General Appearance: NAD, awake alert Eye: PERRL, anicteric sclera ENT: normocephalic atraumatic, no oropharyngeal lesions, moist mucosa Neck: supple, symmetric, no JVD, no thyromegaly, no lymphadenopathy Heart: RRR, no murmur, no gallops, no rubs, normal peripheral pulses Respiratory: CTAB, no wheezes, no rales, no ronchi Gastrointestinal: soft, non-tender, non-distended, normal bowel sounds Extremities: no cyanosis Neurological: cranial nerve grossly intact Musculoskeletal: normal tone, normal strength, no muscle wasting Psychiatric: normal affect, normal behavior, A&O x 3 Hosp A/P (1) Fever, unknown origin Status: Acute Plan: Cultures are collected and are pending. Will start empiric Doxycycline to treat for any parasitemia as he [place] in a ranch. Appreciate ID services. (2) Cancer of testis, seminoma Code(s): C62.90 - MALIG NEOPLASM OF UNSP TESTIS, UNSP DESCENDED OR UNDESCENDED Status: Chronic Plan: Had bone marrow aspiration and biopsy today. (3) Acquired thrombocytopenia Code(s): D69.59 - OTHER SECONDARY THROMBOCYTOPENIA Status: Acute - Plan old records reviewed/req, PT/OT, DVT proph w/lovenox
[2020-08-31 16:28] LABS: HIV (1/2) Antibody/Antigen Non-Reactive (NonReactive)
--- NOTE | 2020-08-31 18:12 | CON ---
DATE OF CONSULTATION: REASON FOR CONSULTATION: Anemia and thrombocytopenia. HISTORY OF PRESENT ILLNESS: Mr. Leary is a 50-year-old gentleman, who has a history of stage classic seminoma. He is status post left orchiectomy and 4 cycles of BEP chemotherapy. He has had no evidence of disease and followed by Dr. Dos Santos at [facility] ([facility] He takes hormone replacement with testosterone and has had occasional erythrocytosis. He was recently admitted to this facility for shortness of breath and chest pain. He was noted to have a hemoglobin of 8.2 and a platelet count in the 20,000 range. His serum iron was high. His retic count was not elevated. His stool was positive for occult blood. His folic acid was low at 3, but his B12 level was normal. He underwent endoscopy, which showed multiple gastric polyps, some of those were removed. His colonoscopy was negative. He was sent home on folic acid and followed up with Dr. Dos Santos. On August 26, his hemoglobin was 8.3, but his platelet count had improved to 108,000. He was to have a bone marrow biopsy. However, when he appeared to our clinic yesterday, he was complaining of shortness of breath and fatigue. His hemoglobin was 7.7. He was now having profuse night sweats and fevers. He was directly admitted to this facility for further workup. On admission, his hemoglobin was 6.8. He was transfused 2 units on this admission with improvement of his hemoglobin to 9.8. He also had a bone marrow biopsy done today. His CT scan showed nonspecific edematous changes in the mesenteric fat, primarily in the right lower quadrant, possibly associated with enteritis. He also has a known splenomegaly. He had a left shift with 80% neutrophils and 24% bands. Dr. Mcgee was consulted. Currently, he denies any complaints at this time. He feels much better after his transfusion. He has had no weight loss. He does have occasional cough. PAST MEDICAL HISTORY: 1. Stage classic seminoma testicular cancer. 2. Hypertension. 3. Hypogonadism, on testosterone replacement. 4. Splenomegaly. PAST SURGICAL HISTORY: Orchiectomy, mastectomy, appendectomy, shoulder surgery, hand surgery. ALLERGIES: NO KNOWN DRUG ALLERGIES. CURRENT MEDICATIONS: 1. Atenolol. 2. Colace. 3. Folic acid. 4. Protonix. 5. Testosterone every 6 months. FAMILY HISTORY: Noncontributory. SOCIAL HISTORY: He is , has 2 children. Lives with his spouse. Daily drinker. Former smoker. No illicit drug use. REVIEW OF SYSTEMS: 12-point review of systems is negative except for noted in HPI. PHYSICAL EXAMINATION: VITAL SIGNS: Temperature is 98.7, pulse 79, respiratory rate 20, blood pressure is 130/75, he is 99% on room air. GENERAL: A well-developed, well-nourished male, in no acute distress. HEENT: Normocephalic, atraumatic. Pupils are equal and reactive to light. NECK: Supple. CV: Regular rate and rhythm. LUNGS: Clear anterior. ABDOMEN: Soft and nontender. Bowel sounds are positive. EXTREMITIES: No clubbing or cyanosis. SKIN: No rash. HEMATOLOGICAL: No petechiae or purpura. NEUROLOGIC: Nonfocal. GENITALIA: Deferred. PERTINENT LABORATORY DATA AND X-RAYS: Current WBCs are 5.9, hemoglobin 9.5, hematocrit 28.3, platelet count is 39,000. He has 18% neutrophils, 24% bands, 40% lymphocytes, 12% monocytes. His retic count is 1.5. Sedimentation rate 23. PT is 14.1, INR is 1.1, PTT is 32.5. Sodium 136, potassium 3.7, chloride 100, CO2 is 27, BUN is 15, creatinine 1.05, lactic acid 1.4, calcium 8.8, iron is 89, TIBC is 284, iron saturation is 31, bilirubin 0.6, AST is 14, ALT is 12, alkaline phosphatase is 65, LDH is 230. C-reactive protein is 2.46. Troponin negative. Serum total protein 7, albumin 3.6, globulin 3.4. B12 is 525. Folic acid 9.9. Urine is negative. Radiology per HPI. ASSESSMENT: 1. Severe symptomatic anemia. 2. Thrombocytopenia. 3. History of splenomegaly. 4. History of testicular cancer. DISCUSSION: The patient has been evaluated for his testicular cancer last week. His AFP and beta-hCG are both normal. It is unclear the reason for his anemia. He denies any bleeding. There was no findings on endoscopy yet he had a positive occult stool on his last admission. He does have splenomegaly, which is likely contributing to his findings. Bone marrow biopsy has been done today to rule out any type of lymphoma, myelofibrosis, or myelodysplasia. He had a good response to blood transfusion. We will check his CBC in the morning. Case has been discussed with Dr. Dos Santos. We will follow along with his hospital course. Job ID: [id number]
[2020-09-01] MEDS: Sodium Chloride 0.9% 1,000 ML IV SCH (05:33)
[2020-09-01] MEDS: Atenolol 50 MG TAB PO SCH (08:35)
[2020-09-01] MEDS: Folic Acid 1 MG TAB PO SCH (08:35)
[2020-09-01] MEDS: Docusate 100 MG CAP PO SCH (08:35)
[2020-09-01 08:44] LABS: Ref Lab Test Ordered EHRLICHIA AB; Reference Lab Name LABCORP
[2020-09-01 08:47] LABS: Ref Lab Test Ordered Q FEVER AB; Reference Lab Name LABCORP
--- NOTE | 2020-09-01 09:28 | CT ---
CT-guided bone marrow aspiration/biopsy Conscious sedation: At least 30 minutes spent with the patient for conscious sedation. FINDINGS: After explaining the procedure and answering all questions, limited CT imaging of the pelvi s was performed with patient prone. Sterile technique, buffered local anesthesia, CT guidance, and a left posterior approach were used to carefully advance an 11-gauge bone biopsy needle to the posterior cortex of the left iliac body. Position confirmed with CT. Biopsy needle carefully engaged through the cortex. Blood aspirate obtain ed and submitted to pathology for processing. 11-gauge core specimen obtained and submitted to pathology. No evidence of complication. Patient tolerated the procedure well and was returned in unchanged condi tion. IMPRESSION : Technically successful CT-guided bone marrow aspiration/biopsy. Pathology is pending. Transcribed Date/Time: 09/01/2020 9:28 AM
[2020-09-01 09:29] LABS: Hemoglobin 9.5 g/dL (14.0-18.0); Mean Corpuscular HGB CONC 32.1 g/dL (32.0-36.0); Mean Corpuscular Hemoglobin 30.5 pg (27.0-31.0); Mean Corpuscular Volume 94.9 fL (78.0-98.0); Mean Platelet Volume 9.6 fL (7.4-10.4); Platelet Count 36 thou/uL (130-400); RBC Distribution Width 26.8 % (11.5-14.5); White Blood Cell (WBC) Count 5.7 thou/uL (4.8-10.8)
[2020-09-01 11:35] LABS: Anisocytosis MODERATE=16-30 cells (100X) (0-5/hpf); Band 22 % (5-11); Hypochromia SLIGHT = 6-15 cells (100X) (0-5/hpf); Lymphocytes 26 % (21-51); MDiff Complete? YES; Metamyelocyte 12 % (0-0); Monocytes 9 % (0-10); Myelocyte 2 % (0-0); Neutrophil 24 % (42-75); Nucleated RBC 1 % (0); Platelet Morphology Comment Appears Decreased; Polychromasia SLIGHT = 2-3 cells (100X) (0-2/hpf); Reactive Lymphocytes 3 % (0-10); Reflex for Review?? YES; Schistocytes SLIGHT = 2-5 cells (100X) (0-1/hpf)
[2020-09-01 12:04] VITALS: BP 118/72; TEMP 97.8
--- NOTE | 2020-09-01 13:39 | PDOC.MOPN ---
Interval History: no complaints. at bedside. - Vital Signs Vital Signs: Vital Signs (12 hours) Temp Pulse Resp BP BP Pulse Ox 09/01/20 12:00 97.8 F 78 18 118/72 99 09/01/20 08:35 88 134/74 09/01/20 08:00 98.6 F 93 18 122/69 98 09/01/20 04:00 98.3 F 98 16 145/70 H 97 Weight Admit Weight 218 lb 11.2 oz Weight 218 lb 11.2 oz - Physical Exam General: Alert, Oriented x3, No acute distress HEENT: Atraumatic, PERRLA, EOMI, Mucous membr. moist/pink Lungs: Clear to auscultation, Normal air movement Cardiovascular: Regular rate, Normal S1, Normal S2, No murmurs, Gallops, Rubs Abdomen: Normal bowel sounds, Soft, No tenderness, No hepatospenomegaly, No masses Extremities: No clubbing, No cyanosis, No edema, Normal pulses, No tenderness/swelling Skin: No rashes, No breakdown, No significant lesion Neurological: Normal gait, Normal speech, Strength at 5/5 X4 ext, Normal tone, Sensation intact, Cranial nerves 3-12 NL, Reflexes 2+ Psych/Mental Status: Mental status NL, Mood NL - Labs Result Diagrams: 09/01/20 09:11 08/30/20 21:34 Lab results: Laboratory Results - last 24 hr 09/01/20 09:11: WBC 5.7, RBC 3.10 L, Hgb 9.5 L, Hct 29.5 L, MCV 94.9, MCH 30.5, MCHC 32.1, RDW 26.8 H, Plt Count 36 L, MPV 9.6, Neutrophils % (Manual) 24 L, Band Neuts % (Manual) 22 H, Lymphocytes % (Manual) 26, Reactive Lymphs % 3, Monocytes % (Manual) 9, Metamyelocytes % (Man) 12 H, Myelocytes % 2 H, Nucleated RBCs # (Man) 1 H, Other Cell Type 2, Hypochromia SLIGHT = 6-15 cells, Plt Morphology Comment Appears Decreased L, Polychromasia SLIGHT = 2-3 cells, Anisocytosis MODERATE=16-30 cells H, Schistocytes SLIGHT = 2-5 cells, Smear Path Review Cancelled 08/31/20 17:20: Miscellaneous Test [facility], Ref Lab Test Name EHRLICHIA AB 08/31/20 15:35: HIV 1&2 Antigen & Ab Non-Reactive 08/31/20 15:35: Miscellaneous Test [facility], Ref Lab Test Name Q FEVER AB Status: lab reviewed by me A/P - Problem (1) Anemia of chronic disease Current Visit: Yes Code(s): D63.8 - ANEMIA IN OTHER CHRONIC DISEASES CLASSIFIED ELSEWHERE Status: Chronic (2) Acquired thrombocytopenia Current Visit: No Code(s): D69.59 - OTHER SECONDARY THROMBOCYTOPENIA Status: Acute - Plan Plan: 1. bone marrow biopsy completed. Spoke with Dr. yeager, likely MDS. Final path on Sunday 2. Hgb stable, recheck on Sunday am 3. Ok to go home and follow-up in clinic on Sunday for lab. Appt with Dr. Dos Santos on Sunday.
--- NOTE | 2020-09-01 14:33 | PDOC.DS.DS ---
Provider - Provider Date of Admission: 08/30/20 17:46 Date of Discharge: 09/01/20 Admitting Provider: Nick Gutierrez MD Consultations: Infectious Disease, Oncology Primary Care Physician: NO PCP PROVIDER Course - Hospital Course Hospital Course: This is a 50-year-old patient with history includes testicular cancer who was sent into the hospital by the oncologist after he was found to have some abnormal laboratory findings. He was specifically anemic and thrombocytopenic and he also described nocturnal fever that was going on for about a week leading to this hospitalization. There was some concern that he may have an infectious process but he did not have any infection. He had cultures collected on admission and ID services were asked to see him as well. His cultures were negative x48 hours. ID recommended doxycycline oral due to the fact [place] and is exposed to potentially parasite. He was transfused 2 units of packed red cells with significant improvement in his hemoglobin. He had a bone marrow aspiration done the preliminary report per oncology appears to be myelodysplastic syndrome. He will have ongoing outpatient follow-up with the oncologist. At this time he has no other issues and has been afebrile now for the past 48 hours. We will go ahead and discharge him home and he has appointment with the oncologist. He will complete 7 more days of p.o. doxycycline. Resuscitation Status: 08/30/20 20:53 Resuscitation Status Routine Co-Sign Provider: Resuscitation Status: FULL: Full Resuscitation Discussed with: patient - Labs Lab Results: 09/01/20 09:11 08/30/20 21:34 Abnormal Lab Results - Last 48 hrs 08/30/20 19:25: Crossmatch See Detail 08/30/20 21:34: C-Reactive Protein 2.46 H, Albumin/Globulin Ratio 1.1 L 08/30/20 21:35: Immature Retic Fraction 0.394 H 08/30/20 21:36: ESR Westergren 23 H 08/30/20 21:36: RBC 2.11 L, Hgb 6.8 L, Hct 20.6 L, MCH 32.1 H, RDW 27.9 H, Plt Count 39 L, Neutrophils % (Manual) 18 L, Band Neuts % (Manual) 24 H, Monocytes % (Manual) 12 H, Plt Morphology Comment Appears Decreased L, Anisocytosis MODERATE=16-30 cells H 08/30/20 21:38: Ferritin 786.47 H 08/30/20 21:38: Lactate Dehydrogenase 230 H 08/30/20 22:22: Urine Urobilinogen 4.0 A 08/31/20 06:53: Hgb 9.8 L, Hct 29.6 L 08/31/20 12:19: Hgb 9.5 L, Hct 28.3 L 09/01/20 09:11: RBC 3.10 L, Hgb 9.5 L, Hct 29.5 L, RDW 26.8 H, Plt Count 36 L, Neutrophils % (Manual) 24 L, Band Neuts % (Manual) 22 H, Metamyelocytes % (Man) 12 H, Myelocytes % 2 H, Nucleated RBCs # (Man) 1 H, Plt Morphology Comment Appears Decreased L, Anisocytosis MODERATE=16-30 cells H Microbiology - Entire Visit 08/30/20 19:32 Venous blood - Left Arm Blood Culture - Preliminary NO GROWTH AT 48 HOURS 08/30/20 19:25 Venous blood - Right Arm Blood Culture - Preliminary NO GROWTH AT 48 HOURS 08/30/20 22:22 Urine voided Urine Culture - Preliminary NO GROWTH AT 12 HOURS - Physical Exam Vitals: Vital Signs (12 hours) Temp Pulse Resp BP BP Pulse Ox 09/01/20 12:00 97.8 F 78 18 118/72 99 09/01/20 08:35 88 134/74 09/01/20 08:00 98.6 F 93 18 122/69 98 09/01/20 04:00 98.3 F 98 16 145/70 H 97 Weight Admit Weight 218 lb 11.2 oz Weight 218 lb 11.2 oz Physical Exam: The patient was seen and examined on the day of discharge. Problem - Discharge Plan Assessment: Patient was seen and evaluated today and he is doing very well and will be discharged home today. - Problem (1) Fever, unknown origin Status: Acute (2) Cancer of testis, seminoma Code(s): C62.90 - MALIG NEOPLASM OF UNSP TESTIS, UNSP DESCENDED OR UNDESCENDED Status: Chronic (3) Acquired thrombocytopenia Code(s): D69.59 - OTHER SECONDARY THROMBOCYTOPENIA Status: Acute Plan - Discharge Medications Prescriptions: Doxycycline [Vibramycin] 100 mg PO Q12HR #14 cap Home Medications: Medication Instructions Recorded Confirmed Type Doxycycline [Vibramycin] 100 mg PO Q12HR #14 cap 09/01/20 Rx Folic Acid [Folvite] 1 mg PO DAILY tab 09/01/20 Rx Allergies: No Known Allergies Allergy (Verified 08/30/20 21:24) - Discharge Instructions Activity:: Activity as Tolerated Nourishment:: Regular Diet Therapies:: Not Applicable Equipment/Supplies:: Not Applicable - Follow up Plan Referrals: PROVIDER,NO PCP [Primary Care Provider] - Disposition: HOME Quality - Care Measures CORE MEASURES:: N/A
[2020-09-02 11:38] LABS: Bartonella henselae IgG Negative titer (Neg:<1:320); Bartonella henselae IgM Negative titer (Neg:<1:100); Bartonella quintana IgG Negative titer (Neg:<1:320); Bartonella quintana IgM Negative titer (Neg:<1:100)
[2020-09-02 13:14] LABS: Brucella IgM Ab Negative (Negative)
[2020-09-04 15:37] LABS: QuantiFERON-TB Gold Plus Negative (Negative)
--- NOTE | 2020-09-07 19:44 | EKG ---
Test Reason : STAT Blood Pressure : / mmHG Vent. Rate : 100 BPM Atrial Rate : 100 BPM P-R Int : 130 ms QRS Dur : 086 ms QT Int : 322 ms P-R-T Axes : 069 064 -24 degrees QTc Int : 415 ms Normal sinus rhythm Possible Left atrial enlargement Nonspecific T wave abnormality Abnormal ECG When compared with ECG of 16-AUG-2020 12:47, Nonspecific T wave abnormality now evident in Lateral leads Confirmed by ALONA POON (2) on 09/07/2020 7:44:06 PM Referred By: BUTCH PECK Confirmed By:ALONA POON
== END 2020-09-01 15:42 | disposition home or self-care (01) ==
LOC: ONC 17:46
PROVIDERS: ADMIT Internal Medicine; ATTEND Hospitalist
PROC: 07DR3ZX Extraction of Iliac Bone Marrow, Percutaneous Approach, Diagnostic (ICD-10-PCS; principal; 2020-09-01)
PROC: 079T3ZX Drainage of Bone Marrow, Percutaneous Approach, Diagnostic (ICD-10-PCS; 2020-09-01)
DX: R50.9 Fever, unspecified (principal); D75.89 Other specified diseases of blood and blood-forming organs; D69.59 Other secondary thrombocytopenia; D61.818 Other pancytopenia; D63.8 Anemia in other chronic diseases classified elsewhere; K21.9 Gastro-esophageal reflux disease without esophagitis; I10 Essential (primary) hypertension; E29.1 Testicular hypofunction; Z79.899 Other long term (current) drug therapy; Z85.47 Personal history of malignant neoplasm of testis; Z87.891 Personal history of nicotine dependence
CPT/HCPCS: 20225; 36415; 36430; 71045; 74177; 77012; 80053; 81001; 82247; 82607; 82728; 82746; 83010; 83540; 83550; 83605; 83615; 83690; 84145; 84443; 84484; 85007; 85014; 85018; 85027; 85046; 85060; 85097; 85610; 85652; 85730; 86140; 86480; 86611; 86622; 86850; 86900; 86901; 87040; 87086; 87385; 87389; 87798; 88184; 88237; 88305; 88311; 88313; 88341; 88342; 93005; 93010; 96374; 96376; G0378; G0379; J2250; J3010; J3490; P9016; Q9967